=== PATIENT | female | born 1965 | race Caucasian/White ===

== ENCOUNTER 2024-01-16 07:42 | Day surgery (SDC) | payer BC ==
[~2024-01-16 07:42] MED LIST: Sodium Chloride 0.9% 10 ML Syringe FLUSH PRN; Sodium Chloride 0.9% 2.5 ML Syringe FLUSH PRN; Sodium Chloride 0.9% 20 ML SDV IV PRN
[2024-01-16] MEDS: Lactated Ringers 1,000 ML IV SCH (08:20)
[2024-01-16] MEDS ORDERED: propofoL 50 ML ONE (09:40)
[2024-01-16] MEDS ORDERED: Ondansetron 4 MG/2 ML SDV ONE (11:11)
== END 2024-01-16 11:20 | disposition home or self-care (01) ==
LOC: MW.SDS 07:42
PROVIDERS: ATTEND Surgery
DX: Z12.11 Encounter for screening for malignant neoplasm of colon (principal); K57.30 Diverticulosis of large intestine without perforation or abscess without bleeding; K63.5 Polyp of colon; I10 Essential (primary) hypertension; E11.42 Type 2 diabetes mellitus with diabetic polyneuropathy; J45.20 Mild intermittent asthma, uncomplicated; E78.00 Pure hypercholesterolemia, unspecified; E03.9 Hypothyroidism, unspecified; N62 Hypertrophy of breast; Z79.890 Hormone replacement therapy; Z79.85 Long-term (current) use of injectable non-insulin antidiabetic drugs; Z79.82 Long term (current) use of aspirin; Z79.899 Other long term (current) drug therapy; Z88.1 Allergy status to other antibiotic agents
CPT/HCPCS: J2405; J2704; J7120